=== PATIENT | female | born 1985 | race Caucasian/White ===

== ENCOUNTER 2022-12-27 13:04 | Outpatient (CLI) | payer OTHER, BC, SELFPAY ==
--- NOTE | ~2022-12-27 | MR_ITS ---
MRI of the left foot CLINICAL HISTORY: Pain TECHNIQUE: Sagittal T1-weighted and STIR images, axial proton-density and proton-density fat-sat imag es, and coronal T1-weighted and proton-density fat-sat images were performed. FINDINGS: Bone marrow signals are unremarkable. No bone marrow edema, fracture, or evidence for ostei tis. Visualized joint spaces are intact. Small first MTP joint effusion noted. There is nodular masslike lesion along the medial aspect of the plantar fascia along the level of the first metatarsal, measuring 2.4 x 1.6 x 6.3 cm in extent (series 2 image 26 for example). Lesion is T2 hyperintense, and mildly T1 hyperintense to skeletal muscle. Remainder of the flexor and extensor tendons otherwise are unremarkable. No intermetatarsal bursitis or neuroma identified. 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 Reviewed, dictated and finalized at [facility].
--- NOTE | ~2022-12-27 | MR_ITS ---
MRI of the right foot Clinical history: Pain TECHNIQUE: Axial proton-density and proton-density fat-sat images, sagittal T1-weighted and STIR imag es, and coronal T1-weighted and proton-density fat-sat images were performed. FINDINGS: Bone marrow signals are unremarkable. No fracture, bone marrow edema, or evidence for osteo myelitis. Visualized joint spaces are essentially unremarkable. No significant degenerative or erosive change. Minimal joint effusion present at the first MTP joint. No intermetatarsal bursitis or Leiva's neurom a identified. There is somewhat nodular, masslike thickening along the mid to distal portion of the plantar fascia, with the area of abnormal nodular appearance measuring approximately 2.3 x 1.6 x 7.0 cm in extent. L esion is isointense to muscle on T1-weighted images, and mildly hyperintense on T2-weighted images. F lexor and extensor tendons otherwise are intact. IMPRESSION: Findings consistent with plantar fibromatosis, with lesion along the plantar fascia measuring 2.3 x 1 .6 x 7.0 cm in extent. Reviewed, dictated and finalized at location . IMPRESSION: Findings consistent with plantar fibromatosis, with lesion along the plantar fa scia measuring 2.3 x 1.6 x 7.0 cm in extent.
== END 2022-12-27 13:05 | disposition home or self-care (01) ==
LOC: ANHIMG 13:15
PROVIDERS: Visit Provider Physician Assistant Surgical
DX: M79.671 Pain in right foot (principal); M79.672 Pain in left foot; M72.2 Plantar fascial fibromatosis
CPT/HCPCS: 73718

== ENCOUNTER 2025-01-06 02:40 | Emergency (ER) | payer OTHER, SELFPAY ==
[2025-01-06 02:42] VITALS: BP 144/91; PULSE 99; RESP 14; TEMP 36.6; O2SAT 99
--- OUTSIDE RECORDS SUMMARY | 2025-01-06 02:43 | XMS_ITS | Clinical Summary ---
Author Organization 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 Name Role Phone Unknown, Notinfile Primary Care Provider Unavail able Allergies No known active allergies Medications No known medications Active Problems No known active problems Social History Tobacco Use Types Packs/Day Years Used Date Smoking Tobacco: Every Day Cigarettes Tobacco Cessation:Counseling Given: Not Answered Personal Safety Answer Date Recorded Getting School Help Needed Not on file 11/17 Comments Unknown Sex and Gender Information Value Date Recorded Sex Assigned at Not on file Legal Sex Female 6:03 PM CENTER DIRECTOR Gender Identity Female 11/15/2022 6:03 PM CENTER DIRECTOR Sexual Orientation Not on file Obstetrics History Last Filed Vital Signs Vital Sign Reading Time Taken Comments Blood Pressure 130/86 11/15/2022 6:13 PM CENTER DIRECTOR Pulse 90 11/15/2022 6:13 PM CENTER DIRECTOR Temperature 36.7 C (98 F) 11/15/2022 6:13 PM CENTER DIRECTOR Respiratory Rate 18 11/15/2022 6:13 PM CENTER DIRECTOR Oxygen Saturation 99% 11/15/2022 6:13 PM CENTER DIRECTOR Inhaled Oxygen Concentration - - Weight 94.8 kg (209 lb) 11/15/2022 6:13 PM CENTER DIRECTOR Height 170.2 cm (5' 7 ) 11/15/2022 6:13 PM CENTER DIRECTOR Body Mass Index 32.73 11/15/2022 6:13 PM CENTER DIRECTOR Plan of Treatment Health Maintenance Due Date Last Done Comments Cervical Cancer Screening 1986 Depression Screening 1986 Hepatitis C Screening 1986 DTaP/Tdap/Td Vaccine (1 - Tdap) 1997 Varicella Vaccines (1 of 2 - 13+ 2-dose series) 12/05/1999 Hepatitis B Screening 2004 Regular Well Visit/Exam 18-64 2004 Pneumococcal vaccine <65 (1 of 2 - PCV) 2005 Covid-19 Vaccine ( season) 2024 06/29/2022, 06/29/2021, 10/13/2020, Additional history exists Influenza Vaccine (Season Ended) 2025 HPV Vaccines Aged Out No longer eligi ble based on patient's age to complete this topic Insurance [facility] Care Teams Ferris Wheel Operator Relationship Specialty Start Date End Date Unknown, Notinfile PCP - General 11/15/22
--- OUTSIDE RECORDS SUMMARY | 2025-01-06 02:43 | XMS_ITS | Continuity of Care Document ---
Author Organization [facility] Address [address] [place] [address] [place] [address] Phone Care Team Providers Care Chin Strap Sewer Name Role Phone Joel Armijo MD Unavailable Unavailable Allergies, Adverse Reactions, Alerts Substance Reaction Status Criticality No Known Allergies Active No Inform ation Medications Medication Instructions Dosage Effective Dates (start - stop) Status Comments Flexeril 10 mg tablet take 1 tablet (10MG) by oral route 2 times every day 10 MG - Active avoid driving or operate machines ibuprofen 800 mg tablet take 1 tablet (800MG) by oral route every 6 - 8 hours with food 800 MG - Active PRN for pain Ultram 50 mg tablet take 1 tablet (50MG) by oral route every 6 hours as needed - Active PRN for pain, avoid driving or operat emachines Procedures Procedure Date PREV VISIT, NEW, AGE 18-39 Advance Directives Directive Yes / No Effective Date File Name No Information Encounters Encounter Description Practice Location Reason(s) For Visit Diagnoses Date Provider Providers Copied on Encounter [facility], [address] [place], [place], [id number], tel:[phone] [facility] No Information 0 4 Aleksander Maldonado. [address] [facility] [place], [id number] , [place]. tel:[phone] Referring Provider: [facility]ijo, [address] [facility] [address] [place], [place], [id number]. tel:[phone] [facility], [address] [place], [id number], tel:[phone] [facility] HEMATURIA NOS 3 Aleksander Maldonado. [address], [place], [place], [id number] , [place]. [phone] PREV VISIT, NEW, AGE 18-39 [facility], [address], [place], [place], [id number], [place] tel:[phone] [facility] Physical (chief complaint) Dietary surveillance and counselingRoutine Medical ExamRoutine Medical Exam 3 Aleksander Maldonado. [address], [place], [place], [id number] , [place]. tel:[phone] Family History Family Member Type Diagnosis Age At Onset Sister Problem (finding) Alive and well Mother Problem (finding) CHF Father Problem (finding) Alive and well Mother Problem (finding) Diabetes mellitus Payers Payer name Insurance type Covered alliance party ID Authoriza tion(s) No Information Social History Type Description Quantity Date Captured Comments Alcohol Use Details No Caffeine Use Details Unknown Tobacco Use Status No Information Smoking Status Current every day smoker 2013 Sex Female Vital Signs Date / Time: Height Weight BMI Pulse Rate Blood Pressure Temperature Respiratory Rate Body Surface Area Head Circumference BMI percentile Pulse Ox Inhaled Ox 12:53 PM 67.00 in 220.00 lbs 34.4 5 kg/m eter (2) 98 /min 130/75 mm[Hg] 97.0 F 18 /min Chief Complaint And Reason For Visit No Information Plan Of Treatment Date Type Action Status Goal Tobacco cessation counseling completed Referral Ordered: Physical Therapy ordered Referral Ordered: LUMBAR XRAY AP AND LAT ONLY ordered Referral Referred To: Physical Therapy Ordered: Referral: Physical Therapy. ordered History Of Present Illness Encounter Date Complaint History Of Prese nt Illness No Information Instructions Date Instruction Additional Infor mation Dietary counseling Related to Di etary surveillance counseling Decrease caloric intake Related to Dietary surveillance counseling Assessments Type Assessment Date No Information
--- OUTSIDE RECORDS SUMMARY | 2025-01-06 02:43 | XMS_ITS | Data Portability ---
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 We talked about treatment options for this today in detail were going to start with the shot of cortisone she has a knee brace and naproxen. She will stop the naproxen while we do a course of oral prednisone also. At her request under sterile conditions I injected the patient's left knee joint in the office with 4 cc 0.5% ropivacaine and 20 mg of Kenalog. Patient tolerated procedure well. We will follow up with her knee when she comes back for her feet. As far as her feet go she has bilateral soft tissue masses in the arches of both feet. She is quite tender here has some chronic plantar fasciitis but the mass is may be lipomatous in nature verses fibroids however they did not feel solid. This was discussed with Dr. Molina he has recommended MRI scans of both feet for further evaluation we will see her back after this is done talk about possible referral to foot ankle specialist if necessary. She voiced understanding agrees above plan she will call for any further problems difficulties or questions. X-rays are unremarkable. [email or web address] Not available 11/28/2022 11:30:56 01/09/2023 01/09/2023 Patient returns mass both feet. 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 I retained the MRI scan because of the size of the lesions. She would like to have these surgically addressed. I told him there is a risk that these can come back I with a vengeance. An option is to go ahead and excise them surgically and hopefully they will will come back we discussed the risks of surgery including infection recurrence of the form any and potentially cutting some of the cyst the superficial nerves. I think that to get her another opinion would be reasonable we will have to ask Dr. Bynum to take a look and see what he thinks. I discussed surgery with her in detail. I also reviewed the MRI pictures in the report with her. [email or web address] Not available 01/09/2023 10:23:04 04/03/2023 04/03/2023 This note is dictated and transcribed by [employer]. Appeals Specialist variances may occur. Despite proofreading, typographical errors may occur. [email or web address] Not available 04/03/2023 15:23:58 Plan of Treatment Reminders Order Date Submit Date Provider Last Modified By Organization Details Last Modified Time Details Appointments None recorded. Lab None recorded. Referral political consultant referral - please contact patient to schedule.. .Thank you 2022 023 YAJAIRA Kwong DPM, [address], [address], [place], [address], 11:25:51 Procedures injection/ aspiration joint/burs a (PROC) - in office procedure, administer ed by provider 2022 023 [email or web address] In-Office Order, Internal Use Only DO Not Attach Compendium DO Not Attach Compendium, Do Not Delete/merge, [address] 11:31:42 Surgeries None recorded. Imaging XR, knee 2022 023 [email or web address] [facility], [address], [place], [address], 11:31:42 XR, foot 2022 023 [email or web address] [facility], [address], [place], [address], 11:35:01 MRI, foot, w/o contrast - contact pt to schedule. pt will need disc of images to bring to followup 2022 023 [facility] (Im[facility]), [address], [place], [address], 3 15:30:30 Medication Orders diclofenac sodium 75 mg tablet,del ayed release 2022 023 [email or web address] [facility][id number], [address], [place], [place], [id number], 3 12:06:41 Kenalog 10 mg/mL suspension for injection 2022 023 [email or web address] [facility] #[id number], [address] [facility] [address] [facility], [place], [place], [id number], 3 11:31:42 ropivacain e (PF) 5 mg/mL (0.5 %) injection solution 2022 023 [email or web address] [facility] #09805, [address] [facility] [address] [facility], [place], [place], [id number], 3 12:07:06 prednisone 10 mg tablets in a dose pack 2022 023 [email or web address] [facility] #[id number], [address], [place], [place], [id number], 3 12:07:02 Patient TargetsNo targets recorded. Patient InstructionsNo instructions recorded. Reason for Referral Wafer Mounter Referral for Mass of subcutaneous tissue of right foot please contact patient to schedule...Thank you Referring Physician: Ronak Molina, Orthopedic Surgery, Encounter Date: 01/09/2023 Results Created Date Observation Date Name Description Value Unit Range Abnormal Flag Note LastModifiedBy Organization Detail LastModifiedTime 11/29/19 23 XR, foot No observ ation record ed. [email or web address] [facility] [address], [place], [address], 11/28/2022 11:35:00 11/29/19 XR, knee No observ ation record ed. [email or web address] [facility] [address], [place], [address], 11/28/2022 11:31:43 12/28/19 23 12/27/2022 MRI, foot, w/o contr ast No observ ation record ed. [email or web address] Not Available 2022 16:26:28 Result Notes None recorded. Problems Name Problem SNOMED Code Status Onset Date Resolution Date Notes Provider Name and Address Organization Details Recorded Time Pain of left knee joint 8506477103186 07 Active 2022 Danelle López ATC L null, [place] - [facility] 3 10:36:36 Foot pain 16213439 Active 2022 Danelle López ATC L null, [place] [facility] 3 10:36:50 Osteoarthr itis of left patellofem oral joint 2950522312770 9102 Active 2022 SHYANNE Lino [address], [facility] [address], [place], [address] , [facility] 3 11:32:13 Mass of subcutaneo us tissue of left foot 4173179567058 9100 Active 2022 SHYANNE Lino [address], [address], [place], [address] , [place] [facility] 3 11:32:36 Mass of subcutaneo us tissue of right foot 4739088777381 9105 Active 2022 SHYANNE Lino [address], [address], [place], [address] , [facility] 3 11:32:48 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 9312406676258 9104 Active 2022 Ronak Molina MD [address], [address], [place], [address] , [facility] [employer] [facility] [employer] 3 10:22:33 Hyperchole sterolemia 96102464 Active 2022 [facility] 3 12:07:26 Plantar fascial fibromatos is 61206581 Active 2022 Miko Kwong DPM [address], [address], [place], [address] , [facility] [employer] [facility] [employer] [facility] 3 12:48:59 Pain in both feet 9248328217168 9102 Active 2022 Miko Kwong DPM [address], [address], [place], [address] , [facility] [employer] [facility] [employer] 3 15:23:34 Cigarette smoker 77879375 Active 2022 Miko Kwong DPM [address], [address], [place], [address] , [facility] [employer] 3 15:23:42 Problem Notes None recorded. Procedures Surgical History Date Name Laterality Status Provider Name and Address Organization Details Recorded Time 09/17/19 09 Cholecystectomy completed Dee Rizvi [place] [employer] [facility] [employer] [facility] 04/03/2023 12:08:31 09/17/19 09 Tubal Ligation completed Dee Rizvi [place] [employer] [facility] [employer] [facility] 04/03/2023 12:08:43 Imaging Results Imaging Date Name Status LastModified by Organ atformerly [facility] Details LastModified Time 11/28/2022 XR, foot completed [email or web address] [facility] [address] [place] [address], [place], [address], 11/28/2022 11:35:00 11/28/2022 XR, knee completed [email or web address] [facility] [address], [place], [address], 11/28/2022 11:31:43 12/27/2022 MRI, foot, w/o contrast completed [email or web address] Information not available 12/27/2022 16:26:28 Procedure Notes None recorded. Medical Equipment None Reported. Allergies No known drug allergies Medications Name Sig Start Date Stop Date Status Note LastModified by Organization Details LastModified Time cyclobenzap rine 10 mg tablet 04/03 completed Not Available Not Available Not Available prednisone 10 mg tablet 04/03 completed Not Available Not Available Not Available prednisone 10 mg tablets in a dose pack Take 1 tab by mouth, 3 times a day for 3 daysTake 1 tab by mouth 2 times a day for 2 daysTake 1 tab by mouth once a day for 1 day 04/03 completed Not Available Not Available Not Available Kenalog 10 mg/mL suspension for injection Take 20 mg by injection route. 2022 active [facility]: 0003- 0494- 20 Not Available Not Available Not Available diclofenac sodium 75 mg tablet,barby yed release Take 1 tablet twice a day by oral route. 04/03 completed Not Available Not Available Not Available naproxen 500 mg tablet 04/03 completed Not Available Not Available Not Available ropivacaine (PF) 5 mg/mL (0.5 %) injection solution Take 20 mg by injection route. 04/03 completed Not Available Not Available Not Available Vitals Date Recorded Body height Body mass index (BMI) Body weight Provider Name and Address Organization Details Last Updated DateTime 11/28/2022 170.18 cm 32.1 kg/m2 54593.44 g JAILENE Ang [employer] 11/28/2022 10:46:05 Date Recorded Body height Body mass index (BMI) Body weight Provider Name and Address Organization Details Last Updated DateTime 01/09/2023 170.18 cm 32.7 kg/m2 76978.81 g EZEKIEL Juarez [employer] 01/09/2023 09:31:00 Date Recorded Body height Body mass index (BMI) Body weight Provider Name and Address Organization Details Last Updated DateTime 04/03/2023 170.18 cm 32.1 kg/m2 48356.44 g Dee Rizvi [employer] 04/03/2023 12:06:20 Date Recorded Heart rate Respiratory rate Oxygen saturation Oxygen saturation in Arterial blood by Pulse oximetry Systolic blood pressure Diastolic blood pressure Provider Name and Address Organization Details Last Updated DateTime 3 96 /min 14 /min 98 % 98 % 145 mm[Hg] 104 mm[Hg] Mandie Guerin [facility] [employer] [facility] 12:07:58 Social History Question Answer Notes LastModified by Organizat ion Details LastModified Time Tobacco Smoking Status Current Every Day Smoker Amber Palacios sarah [facility] [employer] [facility] 01/09/2023 09:27:32 What Is Your Level Of Alcohol Consumption? None Information not available 11/28/2022 How Much Tobacco Do You Smoke? 1 PPD Information not available 11/28/2022 Sex: Unknown Functional Status None recorded. Mental Status None recorded. Family History Relationship Description Onset Age of this Age Resolved Age Notes LastModified by Organization Details LastModified Time Mother Family history of stroke [email or web address] Not available 01/09 09:27:31 Mother Hypertensive disorder [email or web address] Not available 11/15 10:46:42 Mother Diabetes mellitus [email or web address] Not available 11/15 10:46:51 Mother Cerebrovascu lar accident [email or web address] Not available 12:07:40 Mother Blood coagulation disorder [email or web address] Not available 2022 12:08:04 Unspecified Relation Arthritis GRANDM OTHER [email or web address] Not available 04/03/2023 12:07:53 Medical History Condition Response HIGH CHOLESTEROL / HYPERLIPIDEMIA Y Gynecological HistoryNo gynecological history recorded. Obstetrics History GPAL:G 0 P 0 0 0 0 Past Encounters Encounter ID Performer Location Encounter Start Date Encounter Closed Date Diagnosis/Indication Diagnosis SNOMED-CT Code Diagnosis ICD10 Code Diagnosis Note [id number] SHYANNE Lino [facility] [address] [place] [address] 11/28/2022 10:29:04 11/28/2022 11:23:35 Pain of left knee joint 6026861567 47498 M25.562 Foot pain 30407769 M79.6 71 M79.672 Osteoarthr itis of left patellofemoral joint 2978263060 3783669 M17.12 Mass of wetzel bcutaneous tissue of left foot 2929887693 2123013 R22.42 Mass of wetzel bcutaneous tissue of right foot 0105672048 5034668 R22.41 [id number] Ronak Molina MD [facility] [address] [place] [address] 01/09/2023 09:25:53 01/09/2023 10:46:26 Foot pain 40950717 M79.671 M79.672 Mass of wetzel bcutaneous tissue of left foot 1901682017 4674254 R22.42 Mass of wetzel bcutaneous tissue of right foot 2497436510 9323550 R22.41 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 6170307031 3074353 M72.2 [id number] Miko Kwong DPM [facility] [address], [address] [place] [address] 04/03/2023 12:00:10 04/03/2023 15:25:37 Plantar fascial fibromatosis 52620122 M72.2 MRI bilateral feet- plantar fibromatre atment options reviewedDu e to smoking status patient will have to discontinu e smoking prior to remove due to risks of wound complicati onsfollow- up in 1 month Pain in both feet 809687 1945 0242003 M79.671 M79.672 secondary to above Cigarette smoker 7332565 7 F17.210 discontinu e smoking Health Concerns Section Related Observation LastModified by Organization Detai ls LastModified Time None Recorded Concern Status LastModified by Organization Details LastModified Time None Recorded Advance Directives Directive None Recorded Payers Encounter Date Sequence Insurance Name Policy Number Policy Escamilla Covered Member ID Escamilla Member ID Guarantor Name 11/28/2022 2 [facility] (MEDICAID REPLACEMENT - HMO) [id number] Aubree Obando [id number] Aubree Obando 11/28/2022 1 [facility] Aubree Obando [id number] Aubree Obando 01/09/2023 2 [employer] (MEDICAID REPLACEMENT - HMO) [id number] Aubree Obando [id number] Aubree Obando 01/09/2023 1 [facility] Aubree Obando [id number] Aubree Obando 04/03/2023 2 [facility] (MEDICAID REPLACEMENT - HMO) [id number] Aubree Obando [id number] Aubree Obando 04/03/2023 1 [facility] Aubree Obando [id number] Aubree Obando Notes Date Note Type Note Provider Name and Address Organization Details Recorded Time 11/28/2022 text/html Patient is a 36-year-old female who comes in today with 2 complaints 1 is her left knee the other is both feet. She states her left knee has been bothering her for a couple of months now. Denies any specific trauma or injury she states she has had some aching pain in the anterior and lateral patellofemoral region if she stands or walks for too long of a time during the day is aggravates her symptoms. Then if she sits her knee gets stiff starts to throb and ache when she gets up and gets going it feels a little better but has pain almost all the time. She denies any effusion or swelling no locking or catching she saw her primary care physician and went through the ER where she was evaluated she had been given a knee brace patellofemoral guide type brace, and some naproxen and Flexeril. She has only been using these measures for about a week not much changed in overall symptoms is noted. If she overdoes it the knee gets a bit puffy by her report. She comes in today for initial evaluation treatment she does not have x-rays with her of her feet or her knee so we will get new ones today.Patient also complaining of bilateral foot pain in the arches. She states for the past couple of years she has noted enlarging mass is in both feet in the arch is a little more towards the forefoot than the heel. She has had no specific trauma or injury denies any numbness or tingling no loss of motion of the foot ankle or toes. She states she was seen by a political consultant a couple of years ago who told her she had plantar fasciitis she has tried different footwear, anti-inflammatories and activity modification without significant relief. She states she feels as though the masses are getting a little bigger over time. She does have a fullness through the arches of both feet and states she has lot of tenderness here has hard time walking or standing for any amount of time. She comes in today for initial evaluation treatment of both feet also.Past medical history sheet was reviewed and signed on the intake sheet today's date drug allergies current medications family social history previous surgical history 10 point review of systems was reviewed and discussed in detail today with the patient. SHYANNE Lino [address] [employer], [place], [address], [employer] 11/28/2022 11:35:38 01/09/2023 text/html Patient returns foot pain bilaterally. She has large fibromas on the bottom of both feet the much larger than typically seen 1 and 7 mm long the other 6 they bother her and she would like to have them surgically removed. Ronak Molina MD [address], [place], [address], [employer] 01/09/2023 10:23:08 04/03/2023 text/html . Patient is a 37-year-old female who presents to the office with complaints of bilateral foot pain. Patient has 2 large nodular masses on the plantar aspect coursing along the plantar fascial area. Patient states that these have been present for 2 years and have recently worsened and become painful. Patient has some mild swelling to the area. 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 Patient states that pain is worse when she is standing walking. Patient is a chronic smoker and smokes approximately 1 pack a day. I did review risks with the patient and due to her smoking I recommend that she discontinue smoking prior to surgery to help reduce post surgical risks. Patient states understanding and will follow up with her PCP for medication. Patient denies any other issues. Miko Kwong DPM [address], [address], [place], [address], [employer] 04/03/2023 15:24:50 OBGyn Episode No OBEpisode recorded.
--- OUTSIDE RECORDS SUMMARY | 2025-01-06 02:43 | XMS_ITS | Referral Summary ---
Author Organization [facility] [address] Address [address] [place] [address] Care Team Providers Care Projector Booth Operator Name Role Phone Unknown, Notinfile Primary [...] on file Legal Sex Female 6:03 PM GASKET WINDER Gender Identity Female 11/15/2022 6:03 PM GASKET WINDER Sexual Orientation Not on file Last Filed Vital Signs Vital Sign Reading Time Taken Comments Blood Pressure 130/86 11/15/2022 6:13 PM GASKET WINDER Pulse 90 11/15/2022 6:13 PM GASKET WINDER Temperature 36.7 C (98 F) 11/15/2022 6:13 PM GASKET WINDER Respiratory Rate 18 11/15/2022 6:13 PM GASKET WINDER Oxygen Saturation 99% 11/15/2022 6:13 PM GASKET WINDER Inhaled Oxygen Concentration - - Weight 94.8 kg (209 lb) 11/15/2022 6:13 PM GASKET WINDER Height 170.2 cm (5' 7 ) 11/15/2022 6:13 PM GASKET WINDER Body Mass Index 32.73 11/15/2022 6:13 PM GASKET WINDER Plan of Treatment Not on file Insurance [facility] Care Teams Projector Booth Operator Relationship Specialty Start Date End Date Unknown, Notinfile PCP - General 11/15/22
--- NOTE | 2025-01-06 03:23 | PC.NURSE ---
pt to triage nurse I think ill come back later. Pt ambulatory with steady gait to exit. no distress noted.
--- OUTSIDE RECORDS SUMMARY | 2025-01-06 03:49 | XMS_ITS | Clinical Summary ---
Author Organization [facility] Address [address] [place] [address] Care Team Providers Care Rollway Man Name Role Phone Unknown, Notinfile Primary Care [...] on file Legal Sex Female 6:03 PM DRILLING ENGINEERING MANAGER Gender Identity Female 11/15/2022 6:03 PM DRILLING ENGINEERING MANAGER Sexual Orientation Not on file Obstetrics History Last Filed Vital Signs Vital Sign Reading Time Taken Comments Blood Pressure 130/86 11/15/2022 6:13 PM DRILLING ENGINEERING MANAGER Pulse 90 11/15/2022 6:13 PM DRILLING ENGINEERING MANAGER Temperature 36.7 C (98 F) 11/15/2022 6:13 PM DRILLING ENGINEERING MANAGER Respiratory Rate 18 11/15/2022 6:13 PM DRILLING ENGINEERING MANAGER Oxygen Saturation 99% 11/15/2022 6:13 PM DRILLING ENGINEERING MANAGER Inhaled Oxygen Concentration - - Weight 94.8 kg (209 lb) 11/15/2022 6:13 PM DRILLING ENGINEERING MANAGER Height 170.2 cm (5' 7 ) 11/15/2022 6:13 PM DRILLING ENGINEERING MANAGER Body Mass Index 32.73 11/15/2022 6:13 PM DRILLING ENGINEERING MANAGER Plan of Treatment Health Maintenance Due Date [...] patient's age to complete this topic Insurance [facility] Care Teams Rollway Man Relationship Specialty Start Date End Date Unknown, Notinfile PCP - General 11/15/22
--- OUTSIDE RECORDS SUMMARY | 2025-01-06 03:49 | XMS_ITS | Continuity of Care Document ---
Author Organization [facility] Address [address] [place] [address] [place] [address] Phone Care Team Providers Care Swatcher Name Role Phone Joel Armijo MD Unavailable [...] Diagnoses Date Provider Providers Copied on Encounter [facility], [address] [place], [place], [id number], tel:[phone] [facility] No Information 0 4 Aleksander Maldonado. [address] [facility] [place], [id number] , [place]. tel:[phone] Referring Provider: Joel Armijo, [address], [place], [place], [id number]. tel:[phone] [facility], [address] [place], [place], [address], tel:[phone] [facility] HEMATURIA NOS 3 Aleksander Maldonado. [address], [place], [place], [address] , [place]. [phone] PREV VISIT, NEW, AGE 18-39 [facility], [address], [place], [place], [address], [place] tel:[phone] [facility] Physical (chief complaint) Dietary surveillance and counselingRoutine Medical ExamRoutine Medical Exam 3 Aleksander Maldonado. [address], [place], [place], [id number] , [place]. tel:[phone] Family History Family Member Type Diagnosis Age [...]
--- OUTSIDE RECORDS SUMMARY | 2025-01-06 03:49 | XMS_ITS | Referral Summary ---
Author Organization [facility] [address] Address [address] [place] [address] Care Team Providers Care Developmental Mathematics Professor Name Role Phone Unknown, Notinfile Primary Care [...] on file Legal Sex Female 6:03 PM KEYPUNCHER Gender Identity Female 11/15/2022 6:03 PM KEYPUNCHER Sexual Orientation Not on file Last Filed Vital Signs Vital Sign Reading Time Taken Comments Blood Pressure 130/86 11/15/2022 6:13 PM KEYPUNCHER Pulse 90 11/15/2022 6:13 PM KEYPUNCHER Temperature 36.7 C (98 F) 11/15/2022 6:13 PM KEYPUNCHER Respiratory Rate 18 11/15/2022 6:13 PM KEYPUNCHER Oxygen Saturation 99% 11/15/2022 6:13 PM KEYPUNCHER Inhaled Oxygen Concentration - - Weight 94.8 kg (209 lb) 11/15/2022 6:13 PM KEYPUNCHER Height 170.2 cm (5' 7 ) 11/15/2022 6:13 PM KEYPUNCHER Body Mass Index 32.73 11/15/2022 6:13 PM KEYPUNCHER Plan of Treatment Not on file Insurance [facility] Care Teams Developmental Mathematics Professor Relationship Specialty Start Date End Date Unknown, Notinfile PCP - General 11/15/22
== END 2025-01-06 03:23 | disposition left against medical advice (07) ==
LOC: ANHED 03:47
DX: M79.671 Pain in right foot (principal)
CPT/HCPCS: 99199

== ENCOUNTER 2025-05-13 03:48 | Emergency (ER) | payer OTHER, SELFPAY ==
--- NOTE | ~2025-05-13 | XR_ITS ---
XR knee LT min 4V 05/13/2025 04:30 INDICATION: Left knee pain after fall PROCEDURE: 4 views left knee COMPARISON: 07/04/2016 FINDINGS: Fracture, dislocation or subluxation is not identified. No significant joint effusion. The soft tissues appear within normal limits. No foreign bodies are identified. IMPRESSION: 1: NO ACUTE BONE OR JOINT ABNORMALITY IDENTIFIED. Reviewed, dictated and finalized at location O.
--- NOTE | ~2025-05-13 | XR_ITS ---
XR hand RT min 3V 05/13/2025 04:30 Indication: Right hand pain Procedure: 3 views right hand Comparison: No prior studies for comparison. Findings: No fracture, subluxation or dislocation. 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 No soft tissue abnormality. No foreign bodies. Impression: 1: No acute bone or joint abnormality. Reviewed, dictated and finalized at location O. Impression: 1: No acute bone or joint abnormality.
[2025-05-13 03:53] VITALS: BP 135/81; PULSE 104; RESP 16; TEMP 36.9; O2SAT 100
--- NOTE | 2025-05-13 04:11 | ED.GENADULT ---
HPI - General Adult General Chief complaint: Extremity Injury, Lower Stated complaint: left knee injury after fall Time Seen by Provider: 05/13/25 03:50 History of Present Illness HPI narrative: Patient is a 39-year-old female who presents emergency department this evening status post fall. Patient states that she tripped and fell landing on her left knee. She is also complaining of right ring finger pain. No deformity noted. Denies hitting her head or any loss of consciousness. Does additional injury. Related Data Allergies Allergy/AdvReac Type Severity Reaction Status Date / Time No Known Allergies Allergy Verified 05/13/25 03:58 Review of Systems Review of Systems: All systems are reviewed and are negative unless stated otherwise in the HPI. Exam Narrative: General: Alert, awake, afebrile, in no acute distress. HEENT: PERRL, no rhinorrhea, no post nasal drip, oropharynx clear. Neck: Trachea midline, no JVD, no lymphadenopathy. Cardiovascular: Regular rate and rhythm, no murmurs, rubs or gallops, no peripheral edema. Respiratory: Clear to auscultation bilaterally, no tachypnea, no wheezing, no rhonchi, no rubs, no respiratory distress. Abdomen: Soft, nontender, nondistended, no rebound, no guarding, no peritoneal signs. Musculoskeletal: No joint swelling or deformity, normal muscle tone, tenderness palpation over the right ring finger, no obvious deformity noted, tenderness to palpation over the medial aspect of the left knee, patient is able to fully extend and flex her left lower extremity at the hip and knee joints without any difficulty. Skin: No rashes or petechia, no signs of infection. Psychiatric: Alert and oriented, normal behavior and judgment for situation. Neurological: Alert and oriented to person, place, and time. Follows all commands. No focal deficits, speech is clear and fluent. Course Vital Signs Vital signs: Vital Signs Temperature 98.4 F 05/13/25 03:53 Pulse Rate 104 H 05/13/25 03:53 Respiratory Rate 16 05/13/25 03:53 Blood Pressure 135/81 05/13/25 03:53 Pulse Oximetry 100 05/13/25 03:53 Oxygen Delivery Room Air 05/13/25 03:53 Temperature 98.4 F 05/13/25 03:53 Pulse Rate 104 H 05/13/25 03:53 Respiratory Rate 16 05/13/25 03:53 Blood Pressure 135/81 05/13/25 03:53 Pulse Oximetry 100 05/13/25 03:53 Oxygen Delivery Room Air 05/13/25 03:53 Medical Decision Making MDM Narrative Medical decision making narrative: The patient was evaluated by myself in the emergency department. History is obtained from patient who is an independent historian and physical exam was performed. External medical records were reviewed at this time. Patient was administered an oral ibuprofen 600 mg. Imaging studies obtained included X-rays of the right hand and left knee which was independently interpreted by me revealing no acute process, which is pending final radiology interpretation. Differential diagnosis considerations include fracture, dislocation, musculoskeletal strain. Comorbidities impacting this visit include none. I have evaluated and discussed social determinants of health with the patient that could potentially impact subsequent diagnosis and treatment plans. On repeat assessment of the patient, reevaluation revealed that the patient is doing well and is in no acute distress. Patient symptoms have improved since she arrived to our emergency department. Repeat vital signs were all reviewed and noted to be stable. Differential diagnosis and treatment plan were discussed with the patient at bedside. Patient agrees with discussion and after shared medical decision making agrees with discharge. All questions were answered to the patient's satisfaction. Patient will follow up with her PCP in 3-5 days. She is also provided with an orthopedic referral. Patient was provided with strict return precautions and instructed to return to the emergency department if any new or worsening symptoms develop. The patient was discharged in stable condition. Vital Signs Vital Signs: Vital Signs Temperature 98.4 F 05/13/25 03:53 Pulse Rate 104 H 05/13/25 03:53 Respiratory Rate 16 05/13/25 03:53 Blood Pressure 135/81 05/13/25 03:53 Pulse Oximetry 100 05/13/25 03:53 Oxygen Delivery Room Air 05/13/25 03:53 Temperature 98.4 F 05/13/25 03:53 Pulse Rate 104 H 05/13/25 03:53 Respiratory Rate 16 05/13/25 03:53 Blood Pressure 135/81 05/13/25 03:53 Pulse Oximetry 100 05/13/25 03:53 Oxygen Delivery Room Air 05/13/25 03:53 Discharge Plan Discharge Clinical Impression: Sprain of hand, right, Acute internal derangement of left knee Patient Disposition: Home Condition: Improved Instructions: Antibiotic Form, Knee Sprain (DC), Hand Sprain (ED) Additional Instructions: Please follow-up with your orthopedic doctor your provided with today if he continued to have left knee pain as you may need an MRI for further evaluation for any meniscal or ligamentous injury. We recommend you follow-up within 3-5 days. Use ibuprofen and Tylenol as needed for pain. Return to the ED if any new or worsening symptoms develop. Patient Language: Maori Follow-up/Referrals: PHYSICIAN,[facility] [Primary Care Provider, Internal Medicine] Khai Hernández MD [Physician, Orthopedics] - 3 Days Time of Disposition: 04:36
[2025-05-13] MEDS: IBUPROFEN 600 MG TABLET PO (04:50)
[2025-05-13 05:07] VITALS: BP 141/87; PULSE 89; RESP 16; O2SAT 99
== END 2025-05-13 04:59 | disposition home or self-care (01) ==
LOC: ANHED 04:43
PROVIDERS: Emergency Provider Emergency Medicine
DX: S63.91XA Sprain of unspecified part of right wrist and hand, initial encounter (principal); M23.92 Unspecified internal derangement of left knee; W01.0XXA Fall on same level from slipping, tripping and stumbling without subsequent striking against object, initial encounter
CPT/HCPCS: 73130; 73564; 99284; A9270